=== PATIENT | female | born 1945 | race Caucasian/White ===

== ENCOUNTER 2017-03-26 14:33 | Inpatient (IN) | payer MEDICARE ==
[2017-03-26] MEDS ORDERED: SODIUM CHLORIDE 0.9% 1,000 ML IV STA (15:11)
[2017-03-26] MEDS ORDERED: FAMOTIDINE 20 MG/2 ML VIAL IV STA (15:11)
[2017-03-26] MEDS ORDERED: METOCLOPRAMIDE 5 MG/ML 2 ML VIAL IVP STA (15:11)
[2017-03-26 15:45] LABS: Basophils % (A) 0 %; CH 30.5; CHCM 33.6; Eosinophils # (A) 0.1 k/uL (0-0.7); Eosinophils % (A) 1 %; HCT 44.4 % (34.0-46.0); HDW 2.75; Luc # (Auto) 0.09; Luc % (Auto) 1; Lymphocytes # (A) 0.9 k/uL (1.0-4.8); Lymphocytes % (A) 11 %; MCH 30.8 pg (25.0-35.0); MCHC 33.8 g/dL (31.0-37.0); MCV 91.2 fL (80.0-100.0); Monocytes # (A) 0.3 k/uL (0-1.0); Monocytes % (A) 3 %; Neutrophils # (A) 6.7 k/uL (1.3-7.7); Neutrophils % (A) 83 %; RBC 4.87 m/uL (3.80-5.40); RDW 13.9 % (11.5-15.5); WBC 8.1 k/uL (3.8-10.6); WBC (Perox) 7.92
[2017-03-26 15:58] LABS: ALT 25 U/L (9-52); AST 19 U/L (14-36); Alkaline Phosphatase 105 U/L (38-126); Anion Gap 12 mmol/L; Blood Urea Nitrogen 22 mg/dL (7-17); Calcium 10.2 mg/dL (8.4-10.2); Carbon Dioxide 26 mmol/L (22-30); Chloride 107 mmol/L (98-107); Glucose 127 mg/dL (74-99); Non-African American GFR(MDRD) >60 (>60 ml/min/1.73 sqM); Potassium 3.9 mmol/L (3.5-5.1); Sodium 145 mmol/L (137-145); Total Bilirubin 1.4 mg/dL (0.2-1.3); Total Protein 7.3 g/dL (6.3-8.2)
--- NOTE | 2017-03-26 16:07 | FL ---
EXAMINATION TYPE: FL barium swallow DATE OF EXAM: 03/26/2017 COMPARISON: NONE HISTORY: Dysphasia gagging and vomiting TECHNIQUE: A single contrast UGI study is performed. FINDINGS: Contrast extends to the distal esophagus. The distal esophagus above the gastroesophageal j unction expected level contrast abruptly stops and is somewhat irregular appearance. Findings are sug gestive for neoplastic process in the distal esophagus. Additionally, note is made of what appears to be a hiatal hernia. Air-fluid levels present. The appearance of the cut off of contrast is not that typical taper of a torsion suggesting paraesophageal hernia unlikely. No free air is noted during this examination. IMPRESSIONS: 1. Obstruction of the distal esophagus above the gastroesophageal junction suspicious for neoplastic process. 2. Suspected small hiatal hernia with air-fluid level.
--- NOTE | 2017-03-26 16:17 | ED ---
General Adult HPI - General Source: patient, RN notes reviewed Mode of arrival: ambulatory Limitations: no limitations <Radha French - Last Filed: 03/26/17 16:12> <Phil Hobbs - Last Filed: 03/26/17 16:39> - General Chief complaint: Nausea/Vomiting/Diarrhea Stated complaint: Vomiting Time Seen by Provider: 03/26/17 14:54 - History of Present Illness Initial comments: 71-year-old female presents to the emergency department with a chief complaint of dysphagia. Patient states that last night she had a normal meal of ice pain this morning. Patient states she's not having difficulty. Patient states this morning she woke up when she tried to drink that he all of a sudden she was unable to tolerate any food or liquids and she has been vomiting ever since she states it is difficult to swallow and she does follow an object coming up later. Patient states that she has had problems with vitamins in the past. Patient states that 20 years ago and it was normal. Patient states she does have acid reflux. Patient states she was concerned due to her symptoms so she thought that she should be evaluated.Patient denies any recent fever, chills, shortness of breath, chest pain, back pain, abdominal pain, nausea vomiting, numbness or tingling, dysuria or hematuria, constipation or diarrhea, headaches or visual changes, or any other current symptoms. (Radha French) - Related Data Home Medications Medication Instructions Recorded Confirmed Bisoprolol-Hctz 5-6.25 mg [Ziac 1 tab PO DAILY 03/21/14 03/26/17 5-6.25 MG] Aspirin [Adult Low Dose Aspirin EC] 81 mg PO DAILY 03/26/17 03/26/17 Fluticasone Nasal [place] [Flonase 1 spray EA NOSTRIL DAILY 03/26/17 03/26/17 Nasal [place]] Multivitamins, Thera [Multivitamin 1 tab PO DAILY 03/26/17 03/26/17 (formulary)] Allergies Allergy/AdvReac Type Severity Reaction Status Date / Time erythromycin base Allergy Rash/Hives Verified 03/26/17 14:51 [Erythromycin Base] Review of Systems ROS Other: All systems not noted in ROS Statement are negative. <Radha French - Last Filed: 03/26/17 16:12> ROS Other: All systems not noted in ROS Statement are negative. <Phil Hobbs - Last Filed: 03/26/17 16:39> ROS Statement: Those systems with pertinent positive or pertinent negative responses have been documented in the HPI. Past Medical History Past Medical History: Hypertension, Osteoarthritis (OA) History of Any Multi-Drug Resistant Organisms: None Reported Past Surgical History: Section, Tonsillectomy Past Psychological History: No Psychological Hx Reported Smoking Status: Never smoker Past Alcohol Use History: None Reported Past Drug Use History: None Reported <Radha French - Last Filed: 03/26/17 16:12> General Exam Limitations: no limitations General appearance: alert, in no apparent distress Eye exam: Present: normal appearance, PERRL, EOMI. Absent: scleral icterus, conjunctival injection, periorbital swelling ENT exam: Present: normal exam, mucous membranes moist Neck exam: Present: normal inspection. Absent: tenderness, meningismus, lymphadenopathy Respiratory exam: Present: normal lung sounds bilaterally. Absent: respiratory distress, wheezes, rales, rhonchi, stridor Cardiovascular Exam: Present: regular rate, normal rhythm, normal heart sounds. Absent: systolic murmur, diastolic murmur, rubs, gallop, clicks GI/Abdominal exam: Present: soft, normal bowel sounds. Absent: distended, tenderness, guarding, rebound, rigid Neurological exam: Present: alert, oriented X3 Psychiatric exam: Present: normal affect, normal mood Skin exam: Present: warm, dry, intact, normal color. Absent: rash <Radha French - Last Filed: 03/26/17 16:12> Medical Decision Making - Lab Data Result diagrams: 03/26/17 15:26 03/26/17 15:26 - Radiology Data Radiology results: report reviewed, image reviewed <Radha French - Last Filed: 03/26/17 16:12> - Lab Data Result diagrams: 03/26/17 15:26 03/26/17 15:26 <Phil Hobbs - Last Filed: 03/26/17 16:39> - Medical Decision Making 71-year-old female presents to emergency room chief complaint of dysphagia. At this time a barium swallow was performed that is suspicious a distal esophageal obstruction neoplasm with other etiologies in the differential. This time patient is unable to tolerate anything by mouth. This time we will be admitting the patient. We'll continue patient on IV hydration with an nothing by mouth diet. (Radha French) Patient reevaluated by myself, Dr. Hobbs. Patient still has nausea. Patient has had several episodes similar to this over the past several months however usually vomits them feels better. Patient has been unable to tolerate oral intake today. I am swallow without passage of material into the stomach. Case was discussed with Dr. Barber who does request medical admission and will scope the patient tomorrow. Case was discussed with Dr. Payton, who will admit for hospital call. (Phil Hobbs) - Lab Data Lab Results 03/26/17 03/26/17 Range/Units 15:26 15:26 WBC 8.1 (3.8-10.6) k/uL RBC 4.87 (3.80-5.40) m/uL Hgb 15.0 (11.4-16.0) gm/dL Hct 44.4 (34.0-46.0) % MCV 91.2 (80.0-100.0) fL MCH 30.8 (25.0-35.0) pg MCHC 33.8 (31.0-37.0) g/dL RDW 13.9 (11.5-15.5) % Plt Count 189 (150-450) k/uL Neutrophils % 83 % Lymphocytes % 11 % Monocytes % 3 % Eosinophils % 1 % Basophils % 0 % Neutrophils # 6.7 (1.3-7.7) k/uL Lymphocytes # 0.9 L (1.0-4.8) k/uL Monocytes # 0.3 (0-1.0) k/uL Eosinophils # 0.1 (0-0.7) k/uL Basophils # 0.0 (0-0.2) k/uL Sodium 145 (137-145) mmol/L Potassium 3.9 (3.5-5.1) mmol/L Chloride 107 (98-107) mmol/L Carbon Dioxide 26 (22-30) mmol/L Anion Gap 12 mmol/L BUN 22 H (7-17) mg/dL Creatinine 0.85 (0.52-1.04) mg/dL Est GFR (MDRD) Af Amer >60 (>60 ml/min/1.73 sqM) Est GFR (MDRD) Non-Af >60 (>60 ml/min/1.73 sqM) Glucose 127 H (74-99) mg/dL Calcium 10.2 (8.4-10.2) mg/dL Total Bilirubin 1.4 H (0.2-1.3) mg/dL AST 19 (14-36) U/L ALT 25 (9-52) U/L Alkaline Phosphatase 105 (38-126) U/L Total Protein 7.3 (6.3-8.2) g/dL Albumin 4.4 (3.5-5.0) g/dL Disposition Time of Disposition: 16:17 Decision Date: 03/26/17 Decision Time: 16:17 <Radha French - Last Filed: 03/26/17 16:12> <Phil Hobbs - Last Filed: 03/26/17 16:39> Clinical Impression: Acute esophageal obstruction Disposition: ADMITTED IP TO THIS [facility] Condition: Stable Referrals: Nonstaff,Physician [Primary Care Provider] - 1-2 days
[2017-03-26] MEDS ORDERED: ONDANSETRON 4 MG/2 ML VIAL IVP PRN (16:39)
[2017-03-26] MEDS ORDERED: NALOXONE 0.4 MG/ML 1 ML VIAL IV PRN (16:39)
[2017-03-26 18:43] VITALS: BMI 34.4
[2017-03-26] MEDS: SODIUM CHLORIDE 0.9% 1,000 ML IV SCH (19:04)
[2017-03-26] MEDS: HYDROmorphone 1 MG/ML 1 ML SYRINGE IV PRN ×2 (19:11→22:17)
[2017-03-27] MEDS: SODIUM CHLORIDE 0.9% 1,000 ML IV SCH ×2 (06:40→14:47)
[2017-03-27] MEDS ORDERED: FLUTICASONE 50MCG/SPRAY NASAL 16GM EA NOSTRIL SCH (09:00)
[2017-03-27 09:05] VITALS: BP 110/72; PULSE 77; RESP 18; TEMP 98
[2017-03-27] MEDS ORDERED: IV FLUID CONTINUATION 400 ML IV ONE (10:27)
[2017-03-27] MEDS ORDERED: LIDOCAINE 1% INJ 10MG/ML (20 ML MDV) ONE (10:35)
[2017-03-27] MEDS ORDERED: PROPOFOL 10 MG/ML 20 ML VIAL IV ONE (10:35)
--- NOTE | 2017-03-27 11:16 | P.CONS ---
History of Present Illness - Reason for Consult Consult date: 03/27/17 - History of Present Illness The patient is a 71-year-old female who presented last night to the emergency department with a chief complaint of dysphagia and inability to swallow including her saliva. Patient states that this started the night before. Patient states the morning of admission she woke up and when she tried to drink all of a sudden she was unable to tolerate any food or liquids and she has been vomiting ever since. Patient states that she has had problems with vitamins in the past. She also indicated that she has been having intermittent issues over the last 6 months with swallowing that would resolve spontaneously. The barium swallow done in the emergency room showed obstruction in the distal esophagus and possible hiatal hernia. She was admitted for further management. Past Medical History Past Medical History: Hypertension, Osteoarthritis (OA) History of Any Multi-Drug Resistant Organisms: None Reported Past Surgical History: Section, Tonsillectomy Past Psychological History: No Psychological Hx Reported Smoking Status: Never smoker Past Alcohol Use History: None Reported Past Drug Use History: None Reported Medications and Allergies Home Medications Medication Instructions Recorded Confirmed Type Bisoprolol-Hctz 5-6.25 mg [Ziac 1 tab PO DAILY 03/21/14 03/26/17 History 5-6.25 MG] Aspirin [Adult Low Dose Aspirin EC] 81 mg PO DAILY 03/26/17 03/26/17 History Fluticasone Nasal [place] [Flonase 1 spray EA NOSTRIL DAILY 03/26/17 03/26/17 History Nasal [place]] Multivitamins, Thera [Multivitamin 1 tab PO DAILY 03/26/17 03/26/17 History (formulary)] Allergies Allergy/AdvReac Type Severity Reaction Status Date / Time erythromycin base Allergy Rash/Hives Verified 03/26/17 14:51 [Erythromycin Base] Physical Exam Vitals: Vital Signs Temp Pulse Pulse Resp BP BP Pulse Ox 03/27/17 09:04 98 F 77 18 110/72 92 L 03/27/17 08:00 18 03/27/17 07:00 98.1 F 70 19 129/77 94 L 03/26/17 23:00 98.0 F 77 18 110/72 92 L 03/26/17 18:57 18 03/26/17 18:01 98.1 F 83 18 152/70 96 03/26/17 16:41 69 18 138/75 95 03/26/17 15:28 78 16 130/81 96 03/26/17 14:35 97.5 F L 86 20 199/88 99 Intake and Output 03/26/17 03/27/17 03/27/17 22:59 06:59 14:59 Other: Voiding Method Toilet Toilet # Voids 1 2 # Bowel Movements 0 0 Weight 97 kg Results CBC & Chem 7: 03/26/17 15:26 03/26/17 15:26 Labs: Abnormal Lab Results - Last 24 Hours (Table) 03/26/17 03/26/17 Range/Units 15:26 15:26 Lymphocytes # 0.9 L (1.0-4.8) k/uL BUN 22 H (7-17) mg/dL Glucose 127 H (74-99) mg/dL Total Bilirubin 1.4 H (0.2-1.3) mg/dL Assessment and Plan Plan: 71-year-old female with obstructive dysphagia and abnormal barium swallow. Will proceed with upper endoscopy today.
--- NOTE | 2017-03-27 11:21 | P.PCN ---
Date of Procedure: 03/27/17 Preoperative Diagnosis: Postoperative Diagnosis: Procedure(s) Performed: Procedure: Esophagogastroduodenoscopy and biopsy. Preoperative diagnosis: Obstructive dysphagia and abnormal barium swallow. Postoperative diagnosis: 1. Moderately sized hiatal hernia and widely patent mucosal ring at the level of the GE junction with distal esophagitis. 2. Spontaneous resolution of the esophageal obstruction prior to this exam. 3. Gastritis and duodenitis. Preparation and sedation: Was provided by anesthesia. Brief clinical history: The patient is a 71-year-old female who presented last night to the emergency department with a chief complaint of dysphagia and inability to swallow including her saliva. Patient states that this started the night before. Patient states the morning of admission she woke up and when she tried to drink all of a sudden she was unable to tolerate any food or liquids and she has been vomiting ever since. Patient states that she has had problems with vitamins in the past. She also indicated that she has been having intermittent issues over the last 6 months with swallowing that would resolve spontaneously. The barium swallow done in the emergency room showed obstruction in the distal esophagus and possible hiatal hernia. She was admitted for further management. This morning, the patient reports improvement in her symptoms and reported being able to swallow her saliva. This evaluation is to assess for esophageal pathology. The details are summarized in the history and physical and dictated consultation. Procedure: With the patient on her left lateral decubitus position and after informed consent and adequate sedation, I passed the Olympus-GIF 160 video upper endoscope through the cricopharyngeus down the esophagus. There was a widely patent mucosal ring at the GE junction around 35 cm from the incisors and there was a moderately sized hiatal hernia extending to around 39-40 cm from the incisors. The esophagus showed some corrugations and in the distal esophagus, perhaps corresponding to where the food bolus could have been impacted, there was edema and erythema of the mucosa. There was no masses. The endoscope was then passed into the stomach which was insufflated with air and inspected in detail including the retroflex view in the cardia. Then, the endoscope was passed through the pylorus into the duodenum. There were no pyloric channel ulcers. Duodenal bulb, post bulbar area and descending duodenum as well as the antrum showed mottling and erythema consistent with gastritis and duodenitis. I obtained biopsies from the duodenum as well as from the antrum. Additionally, I obtained biopsies from the GE junction to break the continuity of the mucosal ring as well as biopsies from the distal esophagus. The patient tolerated the procedure well. Plan: The patient was reassured. I discussed with her family. Would keep on clear liquids today. Further plans based on her course. I suggested that I see her in follow-up in the office and couple months or so and based on her symptoms consideration can be given for an elective upper endoscopy for the purpose of esophageal dilation. Implants: Indications for Procedure: Operative Findings: Description of Procedure:
[2017-03-27] MEDS ORDERED: PANTOPRAZOLE 40 MG/10 ML VIAL IVP SCH ×2 (11:56→21:00)
--- NOTE | 2017-03-27 15:54 | P.HPIM ---
History of Present Illness The patient is a 71-year-old female who presented last night to the emergency department with a chief complaint of dysphagia intermittent mostly to solids and inability to swallow including her saliva. Patient states that this started the night before. Patient states the morning of admission she woke up and when she tried to drink all of a sudden she was unable to tolerate any food or liquids and she has been vomiting ever since. Patient states that she has had problems with vitamins in the past. She also indicated that she has been having intermittent issues over the last 6 months with swallowing that would resolve spontaneously. The barium swallow done in the emergency room showed obstruction in the distal esophagus and possible hiatal hernia. She was admitted for further management. Patient underwent upper GI endoscopy showed had a little hernia, esophagitis and gastritis. Patient will be started on diet and patient will be discharged today to follow up with Dr. Mckeon is an outpatient Review of Systems REVIEW OF SYSTEMS: CONSTITUTIONAL: No fever, no malaise, no fatigue. HEENT: No recent visual problems or hearing problems. Denied any sore throat. CARDIOVASCULAR: No chest pain, orthopnea, PND, no palpitations, no syncope. PULMONARY: No shortness of breath, no cough, no hemoptysis. GASTROINTESTINAL: As mentioned in HPI NEUROLOGICAL: No headaches, no weakness, no numbness. HEMATOLOGICAL: Denies any bleeding or petechiae. GENITOURINARY: Denies any burning micturition, frequency, or urgency. MUSCULOSKELETAL/RHEUMATOLOGICAL: Denies any joint pain, swelling, or any muscle pain. ENDOCRINE: Denies any polyuria or polydipsia. The rest of the 14-point review of systems is negative. Past Medical History Past Medical History: Hypertension, Osteoarthritis (OA) History of Any Multi-Drug Resistant Organisms: None Reported Past Surgical History: Section, Tonsillectomy Past Psychological History: No Psychological Hx Reported Smoking Status: Never smoker Past Alcohol Use History: None Reported Past Drug Use History: None Reported Medications and Allergies Home Medications Medication Instructions Recorded Confirmed Type Bisoprolol-Hctz 5-6.25 mg [Ziac 1 tab PO DAILY 03/21/14 03/26/17 History 5-6.25 MG] Aspirin [Adult Low Dose Aspirin EC] 81 mg PO DAILY 03/26/17 03/26/17 History Fluticasone Nasal [place] [Flonase 1 spray EA NOSTRIL DAILY 03/26/17 03/26/17 History Nasal [place]] Multivitamins, Thera [Multivitamin 1 tab PO DAILY 03/26/17 03/26/17 History (formulary)] Allergies Allergy/AdvReac Type Severity Reaction Status Date / Time erythromycin base Allergy Rash/Hives Verified 03/26/17 14:51 [Erythromycin Base] Physical Exam Vitals: Vital Signs Temp Pulse Pulse Resp BP BP Pulse Ox 03/27/17 09:04 98 F 77 18 110/72 92 L 03/27/17 08:00 18 03/27/17 07:00 98.1 F 70 19 129/77 94 L 03/26/17 23:00 98.0 F 77 18 110/72 92 L 03/26/17 18:57 18 03/26/17 18:01 98.1 F 83 18 152/70 96 03/26/17 16:41 69 18 138/75 95 Intake and Output 03/27/17 03/27/17 03/27/17 06:59 14:59 22:59 Intake Total 200 Balance 200 Intake: IV 200 Other: Voiding Method Toilet # Voids 2 2 # Bowel Movements 0 PHYSICAL EXAMINATION: GENERAL: The patient is alert and oriented x3, not in any acute distress. Well developed, well nourished. HEENT: Pupils are round and equally reacting to light. EOMI. No scleral icterus. No conjunctival pallor. Normocephalic, atraumatic. No pharyngeal erythema. No thyromegaly. CARDIOVASCULAR: S1 and S2 present. No murmurs, rubs, or gallops. PULMONARY: Chest is clear to auscultation, no wheezing or crackles. ABDOMEN: Soft, nontender, nondistended, normoactive bowel sounds. No palpable organomegaly. MUSCULOSKELETAL: No joint swelling or deformity. EXTREMITIES: No cyanosis, clubbing, or pedal edema. NEUROLOGICAL: Gross neurological examination did not reveal any focal deficits. SKIN: No rashes. Results CBC & Chem 7: 03/26/17 15:26 03/26/17 15:26 Labs: Abnormal Lab Results - Last 24 Hours (Table) 03/26/17 Range/Units 15:26 BUN 22 H (7-17) mg/dL Glucose 127 H (74-99) mg/dL Total Bilirubin 1.4 H (0.2-1.3) mg/dL Thrombosis Risk Factor Assmnt - Choose All That Apply Any of the Below Risk Factors Present?: No Other Risk Factors: No Other congenital or acquired thrombophilia - If yes, enter type in comment: No Thrombosis Risk Factor Assessment Level: Very Low Risk Assessment and Plan Plan: #1 intermittent dysphagia secondary to gastritis and esophagitis and patient will be discharged on a Prilosec for a month and follow with gas and probably as an outpatient. #2 hypertension #3 osteoarthritis 4 omission problems patient can continue her medications and patient will be discharged today to follow up primary care patient in 3-7 days and gastroenterology in 2 weeks
--- NOTE | 2017-03-27 15:54 | P.DS ---
Providers Date of admission: 03/26/17 16:39 Attending physician: Tyrell Payton Consults: 03/26/17 16:40 Consult Physician Routine Consulting Provider: Ruben Soriano Consult Reason/Comments: esophageal obstruction Do you want consulting provider notified?: Yes Primary care physician: Physician Nonstaff Hospital Course: Please refer to HPI for further details Patient Condition at Discharge: Stable Plan - Discharge Summary New Discharge Prescriptions: New Omeprazole [PriLOSEC] 40 mg PO AC-BRKFST #30 capsule. No Action Bisoprolol-Hctz 5-6.25 mg [Ziac 5-6.25 MG] 1 tab PO DAILY Multivitamins, Thera [Multivitamin (formulary)] 1 tab PO DAILY Fluticasone Nasal [place] [Flonase Nasal [place]] 1 spray EA NOSTRIL DAILY Aspirin [Adult Low Dose Aspirin EC] 81 mg PO DAILY Discharge Medication List Bisoprolol-Hctz 5-6.25 mg [Ziac 5-6.25 MG] 1 tab PO DAILY 03/21/14 [History] Aspirin [Adult Low Dose Aspirin EC] 81 mg PO DAILY 03/26/17 [History] Fluticasone Nasal [place] [Flonase Nasal [place]] 1 spray EA NOSTRIL DAILY 03/26/17 [History] Multivitamins, Thera [Multivitamin (formulary)] 1 tab PO DAILY 03/26/17 [History ] Omeprazole [PriLOSEC] 40 mg PO AC-BRKFST #30 capsule. 03/27/17 [Rx] Follow up Appointment(s)/Referral(s): Ruben Soriano MD [STAFF PHYSICIAN] - 1 Week Nonstaff,Physician [Primary Care Provider] - 1-2 days Patient Instructions/Handouts: Hiatal Hernia (DC), Gastritis (DC), Esophagitis (DC) Discharge Disposition: HOME SELF-CARE
== END 2017-03-27 14:48 | disposition home or self-care (01) | DRG 392 ==
LOC: EC 14:33 → 4MS4W 16:39
PROVIDERS: ADMIT Internal Medicine; ATTEND Internal Medicine
PROC: 0DB68ZX Excision of Stomach, Via Natural or Artificial Opening Endoscopic, Diagnostic (ICD-10-PCS; 2017-03-27)
PROC: 0DB48ZX Excision of Esophagogastric Junction, Via Natural or Artificial Opening Endoscopic, Diagnostic (ICD-10-PCS; 2017-03-27)
PROC: 0DB98ZX Excision of Duodenum, Via Natural or Artificial Opening Endoscopic, Diagnostic (ICD-10-PCS; principal; 2017-03-27 08:52)
DX: K21.0 Gastro-esophageal reflux disease with esophagitis (principal); K22.2 Esophageal obstruction; I10 Essential (primary) hypertension; K29.70 Gastritis, unspecified, without bleeding; K44.9 Diaphragmatic hernia without obstruction or gangrene; K29.80 Duodenitis without bleeding; M19.90 Unspecified osteoarthritis, unspecified site; R13.19 Other dysphagia; Z79.82 Long term (current) use of aspirin; Z79.899 Other long term (current) drug therapy; Z88.1 Allergy status to other antibiotic agents
CPT/HCPCS: 36415; 43239; 74220; 80053; 85025; 88305; 88342; 96361; 96374; 96375; 99285

== ENCOUNTER → 2017-04-05 | Outpatient (CLI) | payer MEDICARE ==
--- NOTE | 2017-04-05 14:28 | US ---
EXAMINATION TYPE: US venous doppler duplex LE LT DATE OF EXAM: 04/05/2017 1:29 PM COMPARISON: NONE CLINICAL HISTORY: 71-year-old female R60.0 LOCALIZED EDEMA. Needle onset of left leg pain and swellin g, no prev DVT SIDE PERFORMED: left TECHNIQUE: The lower extremity deep venous system is examined utilizing real time linear array sonog thelma with graded compression, doppler sonography and color-flow sonography. FINDINGS: VESSELS IMAGED: External Iliac Vein (EIV) Common Femoral Vein Deep Femoral Vein Femoral Vein Popliteal Vein Proximal Calf Veins Left Leg: thrombus within left CFV that extends into the prox calf veins; results called to Anila Flores in the office at the time of the exam. Some areas show thready flow such as in the lower popliteal vein. IMPRESSION: Exam positive for DVT within the left lower extremity extending from the lower common femoral vein do wn through the upper calf veins.
== END | disposition home or self-care (01) ==
LOC: RADUSWWP 12:22
PROVIDERS: ATTEND Family Medicine
DX: I82.412 Acute embolism and thrombosis of left femoral vein (principal)